=== PATIENT | female | born 1955 | race American Indian/Alaskan Native ===

== ENCOUNTER 2024-11-03 16:07 | Emergency (ER) | payer OTHER ==
[2024-11-03 16:28] VITALS: BP 140/59; PULSE 90; RESP 16; TEMP 98.1; BMI 22.2
[2024-11-03] MEDS: ACETAMINOPHEN 325 MG TABLET (FP) PO ONE (17:15)
[2024-11-03] MEDS ORDERED: ACETAMINOPHEN 325 MG TABLET (FP) ONE (17:21)
[2024-11-03 17:35] LABS: ABSOLUTE IMMATURE GRANULOCYTES 0.02 x10^3/uL (0.0-0.031); BASOPHILS # 0.07 x10^3/uL (0.01-0.08); EOSINOPHIL % 5.1 % (0.7-5.8); EOSINOPHILS # 0.42 x10^3/uL (0.04-0.36); HEMATOCRIT 33.3 % (34.1-44.9); HEMOGLOBIN 10.6 g/dL (11.2-15.7); MCHC 31.8 g/dl (32.2-35.5); MEAN CELL VOLUME 85.4 fl (79.4-94.8); MONOCYTE # 0.63 x10^3/uL (0.24-0.86); MONOCYTE % 7.7 % (4.7-12.5); PLATELET COUNT # 437 x10^3/uL (182-369); RDW 13.6 % (12.4-16.4)
[2024-11-03 17:57] LABS: POTASSIUM 4.7 mmol/L (3.5-5.1)
[2024-11-03 18:01] LABS: ALBUMIN 3.9 g/dl (3.4-5.0); BLOOD UREA NITROGEN 16.3 mg/dL (7-18); CALCIUM 9.8 mg/dL (8.5-10.1)
[2024-11-03 18:04] LABS: CREATININE 0.8 mg/dL (0.55-1.3)
[2024-11-03 18:06] LABS: BILIRUBIN,TOTAL 0.5 mg/dL (0.2-1); TOT PROT 7.3 g/dl (6.4-8.2)
== END 2024-11-03 19:42 | disposition home or self-care (01) ==
LOC: JER 16:07
DX: M71.21 Synovial cyst of popliteal space [Baker], right knee (principal); M71.22 Synovial cyst of popliteal space [Baker], left knee; R60.0 Localized edema
CPT/HCPCS: 36415; 80053; 83880; 85025; 93970-TC; 99284-25